=== PATIENT | female | born 1945 | race Caucasian/White ===

== ENCOUNTER → 2017-10-25 | Outpatient (CLI) | payer OTHER, BC ==
[~2017-10-25] VITALS: Ht 167.6 cm; Wt 103.0 kg
[~2017-10-25] MED LIST: ASCORBIC ACID500 M3 PO; MAGNESIUM250 MG PO; MULTIPLE VITAM1 EAC4 PO; NEXIUM40 MG PO; SYNTHROID112 MCG PO; VITAMIN D31000 UNI2 PO
== END | disposition home or self-care (01) ==
LOC: AMB 13:06
PROC: 0D738ZZ Dilation of Lower Esophagus, Via Natural or Artificial Opening Endoscopic (ICD-10-PCS; principal; 2017-10-25)
DX: K44.9 Diaphragmatic hernia without obstruction or gangrene (principal); K22.2 Esophageal obstruction; K21.9 Gastro-esophageal reflux disease without esophagitis; D64.9 Anemia, unspecified; E03.9 Hypothyroidism, unspecified; A69.20 Lyme disease, unspecified; Z86.718 Personal history of other venous thrombosis and embolism; Z86.711 Personal history of pulmonary embolism; Z90.710 Acquired absence of both cervix and uterus; Z90.79 Acquired absence of other genital organ(s); Z90.722 Acquired absence of ovaries, bilateral
CPT/HCPCS: J2405

== ENCOUNTER 2018-01-31 07:33 | Day surgery (SDC) | payer OTHER, BC ==
[~2018-01-31] VITALS: Ht 170.2 cm; Wt 103.0 kg
[~2018-01-31 07:33] MED LIST changes: +IRON325 M1 PO
[2018-01-31 07:59] VITALS: BP 145/72
[2018-01-31 12:03] VITALS: BP 145/68
[2018-01-31 13:11] VITALS: BP 118/65
== END 2018-01-31 13:25 | disposition home or self-care (01) ==
LOC: SDC 07:33
PROC: BT141ZZ Fluoroscopy of Kidneys, Ureters and Bladder using Low Osmolar Contrast (ICD-10-PCS; principal; 2018-01-31)
PROC: 0TJB8ZZ Inspection of Bladder, Via Natural or Artificial Opening Endoscopic (ICD-10-PCS; principal; 2018-01-31)
PROC: 0T7D7ZZ Dilation of Urethra, Via Natural or Artificial Opening (ICD-10-PCS; principal; 2018-01-31)
DX: R31.0 Gross hematuria (principal); N35.9 Urethral stricture, unspecified; Z79.82 Long term (current) use of aspirin; Z90.710 Acquired absence of both cervix and uterus; Z68.37 Body mass index [BMI] 37.0-37.9, adult; E03.9 Hypothyroidism, unspecified; K21.9 Gastro-esophageal reflux disease without esophagitis; K44.9 Diaphragmatic hernia without obstruction or gangrene; Z91.048 Other nonmedicinal substance allergy status; Z91.040 Latex allergy status; Z80.1 Family history of malignant neoplasm of trachea, bronchus and lung; Z80.6 Family history of leukemia
CPT/HCPCS: 74420; 93005; C1758; J1580; J3010; Q0175